=== PATIENT | male | born 1975 | race Caucasian/White ===

== ENCOUNTER 2021-01-24 10:53 | Emergency (ER) | payer OTHER ==
[~2021-01-24] VITALS: Ht 177.8 cm; Wt 72.7 kg
[2021-01-24 11:30] VITALS: TEMP 98.3
[2021-01-24] MEDS ORDERED: DOXYCYCLINE 10100 MG PO (12:21)
[2021-01-24 12:33] VITALS: BP 128/61; PULSE 80
== END 2021-01-24 12:33 | disposition home or self-care (01) ==
LOC: COL.ER 10:53
DX: K13.0 Diseases of lips (principal); L03.114 Cellulitis of left upper limb; L03.113 Cellulitis of right upper limb; F17.210 Nicotine dependence, cigarettes, uncomplicated